=== PATIENT | female | born 2000 | race Two or more races ===

== ENCOUNTER 2020-07-13 15:40 | Emergency (ER) | payer MEDICAID ==
[~2020-07-13] VITALS: Ht 157.5 cm; Wt 68.0 kg
[2020-07-13 15:48] VITALS: BP 111/79
== END 2020-07-13 18:00 | disposition left against medical advice (07) ==
LOC: ER 15:40
DX: R10.9 Unspecified abdominal pain (principal); Z53.21 Procedure and treatment not carried out due to patient leaving prior to being seen by health care provider

== ENCOUNTER 2024-02-01 04:56 | Inpatient (IN) | payer MEDICAID ==
[~2024-02-01] VITALS: Ht 157.5 cm; Wt 79.4 kg
[2024-02-01] MEDS ORDERED: NALBUPHINE HCL 10 MG/1ml INJECTION IV PRN (05:45)
[2024-02-01] MEDS ORDERED: LACT. RINGERS/OXYTOCIN 20UNITS 500 ML IV ONE ×2 (06:45→07:15)
[2024-02-01 06:52] LABS: Basophils # (auto) 0 10 ^3/uL (0-0.2); Basophils % (auto) 0.3 % (0.0-2.0); Eosinophils # (auto) 0 10 ^3/uL (0-0.8); Eosinophils % (auto) 0.3 % (0.0-7.0); Hemoglobin 9.3 g/dL (12.2-16.2); Mean Corpuscular Hemoglobin 23.9 pg (28.0-32.0); Mean Corpuscular Volume 74.7 fL (80.0-100.0); Monocytes # (auto) 0.5 10 ^3/uL (0-1.3); Neutrophils # (auto) 5.1 10 ^3/uL (1.6-8.6); Nucleated Red Blood Cells % 0.1 %; Red Blood Cells 3.89 10^6/uL (4.0-5.20)
[2024-02-01 06:55] LABS: Lymphocytes # (auto) 2.1 10 ^3/uL (0.4-5.4); Lymphocytes % (auto) 26.6 % (10.0-50.0); Monocytes % (auto) 6.5 % (0.0-12.0); Neutrophils % (auto) 66.3 % (37.0-80.0); Platelet Count (auto) 266 10^3/uL (140-450); Red Cell Distribution Width 16.1 % (11.8-14.3); White Blood Cell 7.7 10^3/uL (4.4-10.8)
[2024-02-01 06:56] LABS: Urine Bacteria FEW /hpf (None Seen); Urine Blood Negative /uL (Negative); Urine Clarity Turbid (Clear); Urine Color Yellow (Yellow); Urine Mucus FEW (None Seen); Urine Protein, UAD 1+ (Negative); Urine Specific Gravity 1.031 (1.001-1.035); Urine Urobilinogen 2 mg/dL (Negative); Urine WBC 13 /hpf (0 - 5); Urine pH 6.5 (5.0-9.0)
[2024-02-01] MEDS: LACTATED RINGER'S 1,000 ML IV ONE (06:57)
[2024-02-01 07:06] LABS: INR 0.92 (0.9-1.15); Partial Thromboplastin Time 25.1 SEC (24.5-34.5); Prothrombin Time 9.8 sec (9.3-11.8)
[2024-02-01 07:09] LABS: Amphetamine Screen, Urine Neg (NEGATIVE); Barbiturate Scree,Urine Neg (NEGATIVE)
[2024-02-01 07:11] LABS: Benzodiazephine Screen, Urine Neg (NEGATIVE); Cannabinoid Screen, Urine Neg (NEGATIVE); Cocaine Screen, Urine Neg (NEGATIVE); Opiate Scree,Urine Neg (NEGATIVE); Phencyclidine Screen, Urine Neg (NEGATIVE)
[2024-02-01 07:11] LABS: Albumin 3.4 g/dL (3.2-4.8); Alkaline Phosphatase 179 U/L (46-116); Anion Gap 9 (5-15); Aspartate Aminotransferase 15 U/L (13-40); BUN/Creatinine Ratio 15.4 (10.0-20.0); Bilirubin, Total 0.3 mg/dL (0.2-1.0); Blood Urea Nitrogen 10 mg/dL (9-23); Calcium 8.8 mg/dL (8.7-10.4); Carbon Dioxide 21 mmol/L (20-31); Chloride 109 mmol/L (98-107); Glucose 80 mg/dL (74-106); Potassium 3.7 mmol/L (3.5-5.1); Sodium 139 mmol/L (136-145); Total Protein 5.8 g/dL (5.7-8.2)
[2024-02-01 07:14] LABS: Alanine Aminotransferase < 9 U/L (7-40)
[2024-02-01] MEDS: PENICILLIN G POT 5MIL/D5 50ML 50 ML IV ONE (07:25)
[2024-02-01] MEDS: ePHEDrine SULFATE 50 MG/ML AMP IV ONE (07:25)
[2024-02-01] MEDS: NALOXONE HCL 0.4 MG/ML VIAL IV ONE (07:25)
[2024-02-01] MEDS: LACT. RINGERS/OXYTOCIN 20UNITS 500 ML IV ONE ×2 (07:26→07:27)
[2024-02-01] MEDS: ROPIVACAINE HCL 0 ML ONE (07:27)
[2024-02-01] MEDS: LACT. RINGERS/OXYTOCIN 20UNITS 1,000 ML IV ONE (07:27)
[2024-02-01] MEDS ORDERED: ACETAMINOPHEN 325 MG TAB PO PRN (07:30)
[2024-02-01] MEDS: DERMOPLAST 60ML BOTTLE TOP PRN (07:38)
[2024-02-01] MEDS: PHISODERM TOP SOLN 240ML BTL TOP PRN (07:39)
[2024-02-01] MEDS: WITCH HAZEL-GLYCERIN PAD TOP PRN (07:39)
[2024-02-01] MEDS: LIDOCAINE 2%HCL (LOCAL ANESTH.) INJ 20ML MDV IJ PRN (07:39)
[2024-02-01] MEDS ORDERED: PENICILLIN G POTASSIUM 2,500,000 UNITS in D5W 5% 50 ML IV SCH (09:45)
[2024-02-01 11:02] VITALS: BP 135/64; PULSE 60; TEMP 97.8; O2SAT 96
[2024-02-01 15:00] VITALS: BP 136/79; PULSE 52; TEMP 98.2; O2SAT 97
[2024-02-01 19:00] VITALS: BP 125/71; PULSE 68; RESP 16; TEMP 97.9; O2SAT 98
[2024-02-01] MEDS: LACTATED RINGER'S 1,000 ML IV SCH (21:35)
[2024-02-01 23:00] VITALS: BP 139/70; PULSE 57; RESP 16; TEMP 98.9; O2SAT 98
[2024-02-02 03:00] VITALS: BP 142/66; PULSE 58; RESP 16; TEMP 98.9; O2SAT 98
[2024-02-02 07:10] VITALS: BP 123/74; PULSE 52; RESP 16; TEMP 98; O2SAT 98
[2024-02-02] MEDS ORDERED: FERR325T24 PO (07:54)
[2024-02-02] MEDS ORDERED: IBUP-1454 PO (07:55)
[2024-02-02] MEDS ORDERED: DOCU-94 PO (07:55)
[2024-02-02] MEDS: IBUPROFEN 600 MG TAB PO PRN (11:27)
[2024-02-04 05:08] LABS: RPR Non Reactive (Non Reactive)
== END 2024-02-02 12:20 | disposition home or self-care (01) | DRG 560 ==
LOC: LDRP 04:56 → UNDOADMOB 04:56 → LDRP 05:30 → OBSVTOIN 05:30 → INTOOBSV 05:30 → OBSVTOIN 05:44 → LDRP 05:44
PROVIDERS: ADMIT Obstetrics & Gynecology; ATTEND Obstetrics & Gynecology
PROC: 10E0XZZ Delivery of Products of Conception, External Approach (ICD-10-PCS; principal; 2024-02-01)
PROC: 0HQ9XZZ Repair Perineum Skin, External Approach (ICD-10-PCS; 2024-02-01)
DX: O70.9 Perineal laceration during delivery, unspecified (principal); Z37.0 Single live birth; O90.81 Anemia of the puerperium; Z3A.38 38 weeks gestation of pregnancy
CPT/HCPCS: 36415; 59409; 80053; 80307; 81001; 85025; 85610; 85730; 86592; 86850; 86900; 86901; 94760; 96360; 96361; 96365; 96366; G0378; J2590; J7060

== ENCOUNTER 2025-01-09 05:32 | Emergency (ER) | payer MEDICAID, OTHER ==
[~2025-01-09] VITALS: Ht 157.5 cm; Wt 66.1 kg
[~2025-01-09 05:32] MED LIST: DOCU-94 PO; FERR325T24 PO; IBUP-1454 PO
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
[2025-01-09 07:13] VITALS: BP 103/71; PULSE 105; RESP 17; TEMP 99.1; O2SAT 97
== END 2025-01-09 07:13 | disposition home or self-care (01) ==
LOC: ER 05:32 → EDUNIT# 05:32 → ER 07:13
DX: S00.83XA Contusion of other part of head, initial encounter (principal); Z65.3 Problems related to other legal circumstances; Y09 Assault by unspecified means; Y93.89 Activity, other specified; Y92.89 Other specified places as the place of occurrence of the external cause; Y99.8 Other external cause status
CPT/HCPCS: 70486